=== PATIENT | male | born 1980 | race Caucasian/White ===

== ENCOUNTER 2017-03-09 22:40 | Emergency (ER) | payer SELFPAY ==
[2017-03-09 22:46] VITALS: BP 154/79; PULSE 70; TEMP 98.8; BMI 24.1
--- NOTE | 2017-03-10 00:24 | PDOC ---
History of Present Illness - General Chief Complaint: Choking Sensation Stated Complaint: FISH BONE STUCK IN THROAT Time Seen by Provider: 03/09/17 23:31 - History of Present Illness Initial Comments: 03/10/17 00:16 CHIEF COMPLAINT: foreign body in throat. HISTORY OF PRESENT ILLNESS: 36 yo M with no PMH presents to ED with sensation of foreign body stuck in throat. Patient reports that he ate fish tonight and felt as if he got a fish bone stuck in the left side of his throat. Patient states he now can't swallow without "feeling something there" and that it is painful each time he swallows. He denies any difficulty breathing, shortness of breath, or swelling to the throat. No recent travel or sick contacts. PAST MEDICAL HISTORY: Denies past medical history FAMILY HISTORY: Denies SOCIAL HISTORY: Denies tobacco, alcohol, illicit drug use. SURGICAL HISTORY: Denies ALLERGIES: No known drug allergies REVIEW OF SYSTEMS General/Constitutional: Denies fever or chills. Denies weakness, weight change. HEENT: Foreign body sensation to left throat. Cardiovascular: Denies chest pain or shortness of breath. Respiratory: Denies cough, wheezing, or hemoptysis. Gastrointestinal: Denies nausea, vomiting, diarrhea or constipation. Denies rectal bleeding. Genitourinary: Denies dysuria, frequency, or change in urination. Musculoskeletal: Denies joint or muscle swelling or pain. Denies neck or back pain. Skin and breasts: Denies rash or easy bruising. PHYSICAL EXAM General Appearance: Well-appearing, appropriately dressed. No apparent distress. HEENT: No foreign body appreciated to oropharynx. No erythema or swelling. EOMI, PERRLA, normal ENT inspection, normal voice, TMs normal, pharynx normal. No conjunctival pallor. No photophobia, scleral icterus. Neck: Supple. Trachea midline. No tenderness, rigidity, carotid bruit, stridor , lymphadenopathy, or thyromegaly. Respiratory/Chest: Lungs CTAB. Cardiovascular: RRR. S1, S2. Gastrointestinal/Abdominal: Normal bowel sounds. Abdomen soft, non-distended. No tenderness or rebound tenderness. No organomegaly, pulsatile mass, guarding , hernia, hepatomegaly, splenomegaly. Musculoskeletal/Extremities: Normal inspection. FROM of all extremities, normal capillary refill. Pelvis Stable. No CVA tenderness. No tenderness to extremities, pedal edema, swelling, erythema or deformity. Integumentary: Appropriate color, dry, warm. No cyanosis, erythema, jaundice or rash Neurologic: managing consultant clinical professor II-XII intact. Fully oriented, alert. Appropriate mood/affect. Motor strength 5/5. No appreciable EOM palsy, facial droop or sensory deficit. Past History - Past Medical History Allergies/Adverse Reactions: Allergies Allergy/AdvReac Type Severity Reaction Status Date / Time No Known Allergies Allergy Verified 03/10/17 00:23 Home Medications: Ambulatory Orders Ibuprofen Oral Suspension [Motrin Oral Suspension -] 400 mg PO Q6H PRN #300 ml 03/10/17 - Suicide/Smoking/Psychosocial Hx Smoking History: Current some day smoker Have you smoked in the past 12 months: Yes Number of Cigarettes Smoked Daily: 4 Information on smoking cessation initiated: No Hx Alcohol Use: No Drug/Substance Use Hx: No Substance Use Type: None *Physical Exam - Vital Signs Last Vital Signs Temp Pulse Resp BP Pulse Ox 98.8 F 70 18 154/79 100 03/09/17 22:41 03/09/17 22:41 03/09/17 22:41 03/09/17 22:41 03/09/17 22:41 ED Treatment Course - RADIOLOGY Radiology Studies Ordered: Category Date Time Status SOFT TISSUE NECK CT W/O CONTR [CT] Stat CT Scan 03/10/17 00:02 Ordered Medical Decision Making - Medical Decision Making 03/10/17 00:24 36 yo M with no PMH presents to ED with sensation of foreign body stuck in throat. -soft tissue neck r/o foreign body 03/10/17 02:01 CT negative for foreign body. Patient requests medication "for pain." -60 mg Toradol Advised patient to follow up with ENT if symptoms persist. Advised patient of signs and symptoms for return to ER; patient verbalized understanding and agrees to plan. *DC/Admit/Observation/Transfer Diagnosis at time of Disposition: Sensation of foreign body in throat - Discharge Dispostion Disposition: HOME Condition at time of disposition: Stable Admit: No - Prescriptions Prescriptions: Ibuprofen Oral Suspension [Motrin Oral Suspension -] 400 mg PO Q6H PRN #300 ml PRN Reason: Pain - Referrals Referrals: Americo Carbajal MD [Staff Physician] - - Patient Instructions Printed Discharge Instructions: DI for Foreign Body, Swallowed-Adult Additional Instructions: As discussed, your CT was negative for anything in your throat. If your symptoms persist, please follow up with the ENT (ear, nose, and throat) doctor. A referral has been provided. If you develop ANY difficulty breathing, swelling or bleeding in your throat, or any new or worsening symptoms, please return to the ER. [place] discutio, ca CT fue negativa para cualquier cosa en ca garganta. Si mayi s ntomas persisten, siga con el mdico ENT (un doctor de odo, nariz y garganta). Se cervantes proporcionado mimi referencia. Si desarrolla CUALQUIER dificultad para respirar, hinchazn o sangrado en la garganta, o cualquier sntoma nuevo o empeoramiento, regrese a la amna de emergencias.
[2017-03-10] MEDS ORDERED: KETOROLAC TROMETHAMINE 60 MG/2 ML VIAL IM ONE (02:01)
[2017-03-10] MEDS ORDERED: KETOROLAC TROMETHAMINE 60 MG/2 ML VIAL ONE (02:06)
== END 2017-03-10 02:12 | disposition home or self-care (01) ==
LOC: JER 22:40
PROC: 3E0233Z Introduction of Anti-inflammatory into Muscle, Percutaneous Approach (ICD-10-PCS; principal; 2017-03-09)
DX: R09.89 Other specified symptoms and signs involving the circulatory and respiratory systems (principal); F17.210 Nicotine dependence, cigarettes, uncomplicated
CPT/HCPCS: 70490-TC; 99282-25

== ENCOUNTER 2019-06-07 13:34 | Emergency (ER) | payer OTHER ==
[2019-06-07 13:48] VITALS: BMI 24.1
--- NOTE | 2019-06-07 17:17 | PDOC ---
History of Present Illness - General Chief Complaint: Chest Pain Stated Complaint: LT. ARM PAIN/ NUMBNESS Time Seen by Provider: 06/07/19 17:15 History Source: Patient, Family Exam Limitations: No Limitations - History of Present Illness Initial Comments: 06/07/19 17:17 HPI: 38yo M no PMH presenting with 2 weeks of intermittent non-exertional chest pain. Works in a garage with heavy lifting. Patient denies prior symptoms, reports no health problems. Improves with ibuprofen or time. Worse after work / with lifting. Denies HTN, HLD, any other cardiac history. "Witnessed seizure activity" reported while patient was sitting in vertical. Patient reportedly extremely nervous about IV placement, about 1 minute after IV placed, slumped over with several myoclonic jerks, found slumped by staff, rapid return to baseline after waking up without any clear post-ictal signs / symptoms. No seizure disorders, no headache / visual changes, no numbness/ tingling/weakness, no FHx seizure disorders. Does drink alcohol, binge drinking on weekends, 4 beers on Thursday, no history of shakes or dependence. SHx: ETOH as above, occasional cigarette, no illicits. Past History - Past Medical History Allergies/Adverse Reactions: Allergies Allergy/AdvReac Type Severity Reaction Status Date / Time No Known Allergies Allergy Verified 06/07/19 13:48 Home Medications: Ambulatory Orders NK [No Known Home Medication] 03/10/17 COPD: No - Psycho Social/Smoking Cessation Hx Smoking History: Never smoked Have you smoked in the past 12 months: Yes Number of Cigarettes Smoked Daily: 4 Information on smoking cessation initiated: No Hx Alcohol Use: No Drug/Substance Use Hx: No Substance Use Type: None Review of Systems - Review of Systems Able to Perform ROS?: Yes Is the patient limited Israeli proficient: Yes Constitutional: No: Chills, Fever HEENTM: No: Nose Congestion, Throat Pain Respiratory: No: Cough, Shortness of Breath Cardiac (ROS): Yes: See HPI, Chest Pain. No: Edema, Irregular Heart Rate, Lightheadedness, Palpitations, Syncope, Chest Tightness ABD/GI: No: Constipated, Diarrhea, Nausea, Vomiting : No: Burning, Dysuria, Frequency Musculoskeletal: No: Muscle Pain, Muscle Weakness Integumentary: No: Pallor, Pruritus, Sweating Neurological: Yes: Seizure (reportedly jerked and passed out s/p I Vinsertion). No: Headache, Numbness, Tingling, Weakness Psychiatric: No: Stressors, Change in Appetite Endocrine: No: Intolerance to Cold, Intolerance to Heat Hematologic/Lymphatic: No: Anemia, Blood Clots, Easy Bleeding All Other Systems: Reviewed and Negative *Physical Exam - Vital Signs Last Vital Signs Temp Pulse Resp BP Pulse Ox 98 F 66 18 150/82 99 06/07/19 13:46 06/07/19 13:46 06/07/19 13:46 06/07/19 13:46 06/07/19 13:46 - Physical Exam 06/07/19 18:31 Vitals reviewed, AFVSS GEN: Well appearing, appears stated age, NAD, comfortable. AAOx3. HEENT: NCAT, EOMI, PERRL. Sclera anicteric, noninjected. No facial asymmetry. Moist mucous membranes. Normal voice. Trachea midline. CV: RRR, S1/S2, no murmurs / rubs / gallops appreciated. LUNG: CTAB, normal work of breathing. No wheezes, rales, rhonchi. No cough. Speaking full sentences. GI: Soft, NTND, +BS, no guarding, no rebound. No masses. Neg CVAT b/l. EXTREMITIES: 2+ distal pulses. No LE edema. No obvious deformities of all extremities. SKIN: Cool clammy hands - resolved on re-exam, no rashes appreciated, non- jaundiced. PSYCH: Normal mood and affect. Cooperative and appropriate. NEURO: CN grossly intact. Moving all extremities well. Normal strength and sensation grossly. ED Treatment Course - LABORATORY CBC & Chemistry Diagram: 06/07/19 16:49 06/07/19 16:49 - ADDITIONAL ORDERS Additional order review: Laboratory Results 06/07/19 17:12 POC Glucometer 88 06/07/19 17:12 POC Glucometer 88 Medical Decision Making - Medical Decision Making 06/07/19 18:37 38yo M no PMH presenting with 2 weeks of intermittent non-exertional chest pain with subsequent vasovagal syncope episode following IV placement. - EKG unremarkable - Labs unremarkable, negative troponin - CXR without acute pathology - Without symptoms at present, normal labs Dispo: Home Discharge - Discharge Information Problems reviewed: Yes Clinical Impression/Diagnosis: Vasovagal syncope Chest pain Qualifiers: Chest pain type: unspecified Qualified Code(s): R07.9 - Chest pain, unspecified Condition: Improved Disposition: HOME - Admission No - Follow up/Referral - Patient Discharge Instructions Patient Printed Discharge Instructions: DI for Syncope in Adults (Fainting), DI for Atypical Chest Pain Additional Instructions: You were seen and evaluated in the ED for chest pain and experienced a syncopal episode (passed out). Continue to take over the counter pain medications according to the label for your pain as needed. Follow up with your primary care doctor in the next 2-3 days. A provider is referred in this packet. Call their office to make an appointment. Return to the ED for any new or concerning symptoms. - Post Discharge Activity
[2019-06-07 17:27] VITALS: TEMP 98.2
[2019-06-07 17:27] LABS: BASO % 0.4 % (0-2.0); EOS % 0.8 % (0-4.5); HEMATOCRIT 45.2 % (35.4-49); HEMOGLOBIN 15.6 GM/dL (11.7-16.9); LYMPH % 37.5 % (8-40); MCH 30.3 pg (25.7-33.7); MCHC 34.4 g/dl (32.0-35.9); MEAN PLT VOLUME 8.5 fl (7.5-11.1); MONO % 8.1 % (3.8-10.2); NEUT % 53.2 % (42.8-82.8); PLATELET COUNT 274 K/MM3 (134-434); RBC 5.14 M/mm3 (4.00-5.60); RDW 13.3 % (11.9-15.9); WHITE BLOOD COUNT 5.9 K/mm3 (4.0-10.0)
[2019-06-07 17:50] LABS: ALBUMIN 4.7 g/dl (3.4-5.0); BILIRUBIN,TOTAL 0.4 mg/dL (0.2-1); BLOOD UREA NITROGEN 12.7 mg/dL (7-18); CALCIUM 9.8 mg/dL (8.5-10.1); CREATININE 0.7 mg/dL (0.55-1.3); TOT PROT 8.6 g/dl (6.4-8.2)
--- NOTE | 2019-06-07 18:05 | PDOC ---
Attending Attestation - Resident Resident Name: Glenn Murray - ED Attending Attestation I have performed the following: I have examined & evaluated the patient, The case was reviewed & discussed with the resident, I agree w/resident's findings & plan - HPI HPI: 06/07/19 18:08 Ayora 38 YOM with no medical history presenting with syncopal episode while getting blood draw/IV, where he felt dizzy and passed out x 3-4 seconds, witnessed. no trauma, no head injury intermittent cp, left sided, pressure, nonexertional, with m ovement x 2 weeks has cards appt in 06/11/19 for eval Stopped drinking etoh 2 weeks ago, 06/07/19 18:22 06/07/19 18:26 - Physicial Exam PE: 06/07/19 18:05 Agree with the resident's HPI and PE as documented in the electronic medical record. NAD, well appearing, alert and oriented appropriately EOMI, PERRL, nl conjunctiva, anicteric; neck supple. lungs clear, RRR, no murmur. abdomen soft nontender. no rebound, guarding. Back nontender. HUBBARD x4, no focal neuro deficits. No peripheral edema. normal color for ethnicity, WWP. speech clear. gait stable. 5/5 prox and distal strength, SILT in all extrem calf nontender, no swelling. 06/07/19 18:27 - Medical Decision Making 06/07/19 18:08 Vital Signs Temp Pulse Resp BP Pulse Ox 98.2 F 61 19 135/75 100 06/07/19 17:26 06/07/19 17:26 06/07/19 17:26 06/07/19 17:26 06/07/19 17:26 DDx chest pain: ACS, coronary vasospasm, NSTEMI, arrhythmia, unstable angina, PE , dissection, PUD, esophageal spasm, GERD, gastritis, costochondritis, pneumonia , pleurisy, pericarditis/myocarditis. dehydration, electrolyte/metabolic derangements. Low suspicion for pulmonary embolism or dissection. perc negative so low likelihood of PE. Chest pain negative: No evidence of ACS, pericarditis, myocarditis, pulmonary embolism, pneumothorax, pneumonia, Zoster, or esophageal perforation. Historically not abrupt in onset, tearing or ripping, pulses symmetric, no evidence of aortic dissection. cxr clear, no ptx/effusion, infiltrate labs wnl, trop neg, reassuring, one sufficient. reproducible left sided anterior cp, tylenol/motrin doubt cardiac. has cards followup scheduled for 06/11/19 episode of syncope brief 3-4 seconds, likely vasovagal, in the setting of getting IV placed. pt with h/o vagal and anxiety with blood draws neuro intact, no indication for CT no trauma. no focal deficits, back to baseline, no neuro complaints., HUBBARD x4 Pt to be discharged in stable condition. Patient and family made aware of clinical impression, treatment recommendations and disposition plan, return precautions discussed (including but not limited to new or persistent/worsening symptoms, pain, fevers, or signs of infection, chest pain, respiratory distress , inability to tolerate oral intake, dehydration, syncope, or neurologic changes ). Follow up with PMD and/or specialist as recommended, follow up information provided, take medications as instructed for duration of time. continue with supportive care, avoid triggers and precipitants. All questions answered to patient's satisfaction and expressed understanding and comfort with this. At the time of discharge, the patient is alert, clinically improved, tolerating po and verbalizes understanding of instructions, satisfied with the care received and felt comfortable with the plan. Patient does not suffer from an acute life- threatening medical condition at this time and is safe for outpatient follow- up. 06/07/19 18:23 06/07/19 18:26 06/07/19 18:28 Heart Score/ECG Review - History History: Slightly suspicious - Electrocardiogram EKG: Normal - Age Age: </= 45 - Risk Factors Based on the list above the patient has:: No risk factors known - Troponin Troponin: </= normal limit - Score Heart Score - Total: 0 #1 ECG reviewed & interpreted by me at: 17:45 General ECG Interpretation: Sinus Rhythm, Normal Intervals, No acute ischemic changes Compared to previous ECG there are: Previous ECG unavail 06/07/19 18:05 Sinus bradycardia at 69 bpm, borderline, narrow QRS, normal axis, no ST elevations or depressions, incomplete right bundle branch block seen in V1.
[2019-06-07] MEDS ORDERED: SODIUM CHLORIDE 0.9% 500 ML INFUS.BAG IV ONE ×2 (18:08→18:24)
[2019-06-07 18:12] VITALS: BP 132/68; PULSE 62
[2019-06-07] MEDS ORDERED: ACETAMINOPHEN 325 MG TABLET (FP) PO ONE (18:23)
[2019-06-07] MEDS ORDERED: IBUPROFEN 600 MG TABLET (FP) PO ONE ×2 (18:23→18:25)
[2019-06-07] MEDS ORDERED: ACETAMINOPHEN 325 MG TABLET (FP) ONE (18:25)
--- NOTE | 2019-06-08 10:05 | EKG ---
Test Reason : Blood Pressure : / mmHG Vent. Rate : 059 BPM Atrial Rate : 059 BPM P-R Int : 122 ms QRS Dur : 098 ms QT Int : 370 ms P-R-T Axes : 049 094 059 degrees QTc Int : 366 ms SINUS BRADYCARDIA RIGHTWARD AXIS INCOMPLETE RIGHT BUNDLE BRANCH BLOCK BORDERLINE ECG NO PREVIOUS ECGS AVAILABLE Confirmed by GWYN SANTIAGO MD ([id number]) on 06/08/2019 10:05:26 AM Referred By: Confirmed By:GWYN SANTIAGO MD
== END 2019-06-07 18:49 | disposition home or self-care (01) ==
LOC: JER 13:34
DX: R55 Syncope and collapse (principal); R07.9 Chest pain, unspecified
CPT/HCPCS: 36415; 71046-TC-FY; 80053; 82550; 82962; 83605; 84484; 85025; 93005; 93010; 99283-25

== ENCOUNTER 2024-05-18 14:31 | Emergency (ER) | payer SELFPAY ==
[2024-05-18 14:36] VITALS: BP 127/77; PULSE 84; RESP 18; TEMP 98.9; BMI 24.9
[2024-05-18] MEDS ORDERED: IBUPROFEN 400 MG TABLET (FP) PO ONE ×2 (15:30→15:32)
[2024-05-18] MEDS ORDERED: ACETAMINOPHEN 500 MG TABLET (FP) ONE (15:30)
[2024-05-18] MEDS: ACETAMINOPHEN 500 MG TABLET (FP) PO ONE (15:35)
[2024-05-18] MEDS: IBUPROFEN 400 MG TABLET (FP) PO ONE (15:35)
== END 2024-05-18 17:01 | disposition home or self-care (01) ==
LOC: JERFT 14:31
DX: S20.212A Contusion of left front wall of thorax, initial encounter (principal); W01.198A Fall on same level from slipping, tripping and stumbling with subsequent striking against other object, initial encounter; Y92.002 Bathroom of unspecified non-institutional (private) residence as the place of occurrence of the external cause
CPT/HCPCS: 71101-TC-LT-FY; 99283-25